=== PATIENT | male | born 1950 | race Two or more races ===

== ENCOUNTER → 2025-01-28 | Outpatient (CLI) | payer OTHER, MEDICAID, SELFPAY ==
--- NOTE | 2025-01-28 14:31 | XR_ITS ---
Examination: Lumbar spine 3 views Technique one AP lateral coned lateral lower lumbar spine 3 views Date and time: January 28, 2025, 1441 hours INDICATIONS: Patient fell 2 days ago with injury to lower back, lower back pain. FINDINGS: No acute lumbar fracture Grade 1 spondylolisthesis L5 on S1 Advanced degenerative disc disease L5-S1 Prominent lumbar spondylosis IMPRESSION: No acute lumbar fracture
== END | disposition home or self-care (01) ==
PROVIDERS: PCP Physician Assistant; Referring Provider Physician Assistant; Visit Provider Physician Assistant
DX: M54.16 Radiculopathy, lumbar region (principal)
CPT/HCPCS: 72100